=== PATIENT | female | born 1965 | race Hispanic/Latino ===

== ENCOUNTER 2024-11-22 06:39 | Emergency (ER) | payer OTHER ==
[~2024-11-22] VITALS: Ht 160 cm; Wt 68.0 kg
[2024-11-22 06:58] VITALS: TEMP 98.4
[2024-11-22 07:08] LABS: BASOPHILS % 0.3 % (0.0-1.0); EOSINOPHILS # (AUTO) 0.1 (0.0-0.4); EOSINOPHILS % 1.2 % (0.0-6.0); HEMATOCRIT 39.4 % (34.2-44.1); HEMOGLOBIN 12.7 g/dL (12.0-16.0); LYMPHOCYTES # (AUTO) 1.9 (1.0-3.2); LYMPHOCYTES % 33.1 % (18.0-39.1); MEAN CORPUSCULAR HEMOGLOBIN 29.4 pg (28-32); MEAN CORPUSCULAR HGB CONC 32.2 g/dL (31-35); MEAN CORPUSCULAR VOLUME 91.2 fL (81-99); MONOCYTES # (AUTO) 0.3 (0.2-0.8); MONOCYTES % 5.3 % (4.4-11.3); NEUTROPHILS # (AUTO) 3.5 (2.1-6.9); NEUTROPHILS % 59.9 % (38.7-80.0); PLATELET COUNT 255 x10e3/uL (140-360); RED BLOOD COUNT 4.32 x10e6/uL (3.6-5.1); RED CELL DISTRIBUTION WIDTH 13.3 % (11.7-14.4); WHITE BLOOD COUNT 5.86 x10e3/uL (4.8-10.8)
[2024-11-22 07:24] LABS: INR 0.92; PROTHROMBIN TIME 13.2 seconds (11.9-14.5)
[2024-11-22 07:25] LABS: PARTIAL THROMBOPLASTIN TIME 32.4 seconds (23.8-35.5)
[2024-11-22 07:38] LABS: TROPONIN I < 0.001 ng/mL (0-0.300)
[2024-11-22 07:42] LABS: ALANINE AMINOTRANSFERASE 20 IU/L (0-55); ALBUMIN 3.8 g/dL (3.5-5.0); ALKALINE PHOSPHATASE 60 IU/L (40-150); ANION GAP 11.7 mmol/L (8-16); BILIRUBIN,TOTAL 0.6 mg/dL (0.2-1.2); BLOOD UREA NITROGEN 13 mg/dL (7-26); BUN/CREATININE RATIO 17 (6-25); CARBON DIOXIDE 23 mmol/L (22-29); CHLORIDE 110 mmol/L (98-107); CREATINE KINASE 142 IU/L (29-168); CREATININE, SERUM 0.76 mg/dL (0.57-1.11); EST GLOMERULAR FILTRATION RATE 91 ML/MIN (>=60); GLUCOSE 94 mg/dL (74-118); POTASSIUM 3.7 mmol/L (3.5-5.1); SODIUM 141 mmol/L (136-145); TOTAL PROTEIN 7.8 g/dL (6.5-8.1)
[2024-11-22 08:00] VITALS: PULSE 61; RESP 16; O2SAT 98
[2024-11-22] MEDS: SODIUM CHLORIDE 0.9% 1000ML 1,000 ML IV STA (08:01)
[2024-11-22] MEDS: KETOROLAC TROMETHAMINE 30 MG/ML VIAL IV STA (08:01)
== END 2024-11-22 08:40 | disposition home or self-care (01) ==
LOC: ER 06:40
DX: R07.89 Other chest pain (principal); M25.512 Pain in left shoulder; M54.6 Pain in thoracic spine
CPT/HCPCS: 36415; 71045; 80053; 82550; 84484; 85025; 85610; 85730; 93005; 94760; 99284; J1885; J7030